=== PATIENT | female | born 1990 | race American Indian/Alaskan Native ===

== ENCOUNTER 2020-01-09 11:52 | Emergency (ER) | payer SELFPAY ==
[2020-01-09] MEDS ORDERED: MAGNESIUM HYDROXIDE (MOM) ORAL LIQD UDC PO PRN (12:05)
[2020-01-09] MEDS ORDERED: ALUM-MAG HYDROXIDE-SIMETHICONE 200-200-20MG/5ML ORAL LIQD 30 ML PO PRN (12:05)
[2020-01-09] MEDS ORDERED: ACETAMINOPHEN 325 MG TAB PO PRN (12:05)
[2020-01-09 12:28] VITALS: BP 104/69
--- NOTE | 2020-01-09 12:52 | Emergency Department Report ---
ED General Adult HPI - General Chief complaint: Medical Clearance Stated complaint: DEPRESSION Time Seen by Provider: 01/09/20 12:02 Source: EMS Mode of arrival: Stretcher Limitations: No Limitations - History of Present Illness Initial comments: This is a 29-year-old female that states that she has had a situational depression for over a year now. Apparently the father of her 2 children was killed over a year ago. The children are at home with her mother. She states that she has been sheltering at home due to the COVID pandemic. She states that she has just had "more time to think about it". She denies prior outpatient services or any medication for depression. She states that she is not thinking about self-harm or harming others. She has no history of hallucinosis nor a mental health history. She states that she does not want to be admitted to a psychiatric facility. Severity scale (0 -10): 0 - Related Data Home Medications Medication Instructions Recorded Confirmed Last Taken Ferrous Sulfate 1 tab PO DAILY 12/01/15 01/31/16 12/01/15 09:00 1 Vit No.130/Iron/Folic 1 each PO DAILY 12/01/15 01/31/16 12/01/15 09:00 [ Tablet] 1 Allergies Allergy/AdvReac Type Severity Reaction Status Date / Time No Known Allergies Allergy Verified 12/01/15 11:54 ED Review of Systems ROS: Stated complaint: DEPRESSION Other details as noted in HPI Comment: All other systems reviewed and negative Psychiatric: depression. denies: anxiety, auditory hallucinations, visual hallucinations, homicidal thoughts, suicidal thoughts ED Past Medical Hx - Past Medical History Hx Hypertension: No Hx Congestive Heart Failure: No Hx Diabetes: No Hx Deep Vein Thrombosis: No Hx Renal Disease: No Hx Sickle Cell Disease: No Hx Seizures: No Hx Asthma: Yes (as a child) Hx COPD: No Hx HIV: No Additional medical history: SVT - Social History Smoking Status: Never Smoker - Medications Home Medications: Home Medications Medication Instructions Recorded Confirmed Last Taken Type Ferrous Sulfate 1 tab PO DAILY 12/01/15 01/31/16 12/01/15 09:00 History 1 Vit No.130/Iron/Folic 1 each PO DAILY 12/01/15 01/31/16 12/01/15 09:00 History [ Tablet] 1 ED Physical Exam - General Limitations: No Limitations General appearance: alert, in no apparent distress - Head Head exam: Present: atraumatic, normocephalic - Eye Eye exam: Present: normal appearance. Absent: scleral icterus - ENT ENT exam: Present: mucous membranes moist - Neck Neck exam: Present: normal inspection - Respiratory Respiratory exam: Present: normal lung sounds bilaterally. Absent: respiratory distress - Cardiovascular Cardiovascular Exam: Present: regular rate, normal rhythm. Absent: systolic murmur, diastolic murmur, rubs, gallop - GI/Abdominal GI/Abdominal exam: Present: soft, normal bowel sounds. Absent: distended, tenderness, guarding, rebound, rigid - Extremities Exam Extremities exam: Present: normal inspection - Back Exam Back exam: Present: normal inspection - Neurological Exam Neurological exam: Present: alert, oriented X3, CN II-XII intact. Absent: motor sensory deficit - Psychiatric Psychiatric exam: Present: normal affect, normal mood - Skin Skin exam: Present: warm, dry, intact, normal color. Absent: rash ED Course Vital Signs 01/09/20 12:17 Temperature 98.2 F Pulse Rate 74 Respiratory 18 Rate Blood Pressure 104/69 O2 Sat by Pulse 100 Oximetry - Reevaluation(s) Reevaluation #1: Patient seems to have a situational depression. I do not detect any evidence of a thought disorder. I do not really detect any evidence of an acute decompensation. She does not meet any 1013 criteria. I have discussed her case with "Manny" mental health counselor. She concurs that the patient does not require involuntary confinement. She has given her a list of outpatient resources. 01/09/20 12:53 Critical care attestation.: If time is entered above; I have spent that time in minutes in the direct care of this critically ill patient, excluding procedure time. ED Disposition Clinical Impression: Situational depression Disposition: DC-01 TO HOME OR SELFCARE Is pt being admited?: No Does the pt Need Aspirin: No Condition: Stable Instructions: Dysthymic Disorder (ED) Additional Instructions: Return to the emergency department any acute change or problem. See outpatient resources. Have also given the information about a local primary care clinic. Referrals: [facility] [Provider Group] - 3-5 Days Time of Disposition: 12:54
[2020-01-09 13:05] LABS: Basophils # (Auto) 0.1 K/mm3 (0.0-0.1); Basophils % (Auto) 1.2 % (0.0-1.8); Eosinophils # (Auto) 0.1 K/mm3 (0.0-0.4); Eosinophils % (Auto) 0.9 % (0.0-4.3); Hematocrit 43.5 % (30.3-42.9); Hemoglobin 14.2 gm/dl (10.1-14.3); Lymphocytes % (Auto) 27.4 % (13.4-35.0); Mean Corpuscular HGB Conc 33 % (30-34); Mean Corpuscular Volume 78 fl (79-97); Monocytes # (Auto) 0.4 K/mm3 (0.0-0.8); Monocytes % (Auto) 5.7 % (0.0-7.3); Platelet Count 254 K/mm3 (140-440); Red Blood Count 5.58 M/mm3 (3.65-5.03); Red Cell Distribution Width 14.7 % (13.2-15.2)
[2020-01-09 13:22] LABS: Blood Urea Nitrogen 12 mg/dL (7-17); Calcium 9.4 mg/dL (8.4-10.2); Hemolysis Index 9
[2020-01-09 13:23] LABS: BUN/Creatinine Ratio 20
== END 2020-01-09 13:30 | disposition home or self-care (01) ==
LOC: ED 11:52
DX: F43.21 Adjustment disorder with depressed mood (principal); J45.909 Unspecified asthma, uncomplicated; Z79.899 Other long term (current) drug therapy
CPT/HCPCS: 36415; 80048; 80320; 85025; G0480